=== PATIENT | female | born 1990 | race Caucasian/White ===

== ENCOUNTER → 2019-05-22 08:39 | Outpatient (CLI) | payer OTHER, SELFPAY ==
--- NOTE | ~2019-05-22 | MR_ITS ---
EXAMINATION: MR thoracic spine wo con EXAM DATE: 05/22/2019 09:47 INDICATION: Mid to low back pain. Bilateral leg pain, left side worse. TECHNIQUE: Multi-sequential, multiplanar MR images of the thoracic spine were obtained without contra st. Sagittal T1, T2, T2 fat saturation, axial T2 weighted images reviewed. There is no prior study for comparison. FINDINGS: The spinal cord signal intensity and intrinsic morphology is normal. There is a small right central disc protrusion at T6-7, slightly indenting the spinal cord without signal change. The thora cic central canal and neural foramen are patent. There is mild thoracic disc disease and facet arthro estela. Paraspinal soft tissue is unremarkable. There are no suspicious marrow signal abnormalities. IMPRESSION: Mild thoracic spondylosis. Reviewed, dictated and finalized at location B. IMPRESSION: Mild thoracic spondylosis.
--- NOTE | ~2019-05-22 | MR_ITS ---
EXAMINATION: MR lumbar spine wo con EXAM DATE: 05/22/2019 09:48 INDICATION: Low back pain, bilateral leg pain left side worse. TECHNIQUE: Multi-sequential, multiplanar MR images of the lumbar spine were obtained without contrast . Sagittal T1, T2, T2 fat saturation images. Axial T2 weighted images. There is no prior study for comparison. FINDINGS: The vertebral bodies are aligned in the AP dimension. There is mild lower thoracic disc dis ease, minimal diffuse lumbar disc disease. Vertebral body heights are maintained. There are no suspic ious marrow signal abnormalities. The conus medullaris terminates at the L1 level and has normal sign al intensity and morphology. Paraspinal soft tissue is unremarkable. Level by level evaluation: T12-L1: Disc does not extend beyond the endplate margin. Facet arthropathy: None. Neural foraminal stenosis: No stenosis. Central canal stenosis: No stenosis. L1-L2: Disc does not extend beyond the endplate margin. Facet arthropathy: Minimal. Neural foraminal stenosis: No stenosis. Central canal stenosis: No stenosis. L2-L3: Disc does not extend beyond the endplate margin. Facet arthropathy: Minimal. Neural foraminal stenosis: No stenosis. Central canal stenosis: No stenosis. L3-L4: Disc does not extend beyond the endplate margin. Facet arthropathy: Minimal. Neural foraminal stenosis: No stenosis. Central canal stenosis: No stenosis. L4-L5: There is a minimal diffuse disc bulge. Facet arthropathy: Mild. Neural foraminal stenosis: No stenosis. Central canal stenosis: No stenosis. L5-S1: There is a mild diffuse disc bulge. Facet arthropathy: Mild. Neural foraminal stenosis: No stenosis. Central canal stenosis: No stenosis. IMPRESSION: 1. Mild lumbar spondylosis. Reviewed, dictated and finalized at location B. IMPRESSION: 1. Mild lumbar spondylosis.
== END ==
PROVIDERS: PCP Family Medicine; Visit Provider Family Medicine
DX: M54.5 Low back pain (principal); M54.6 Pain in thoracic spine; R01.1 Cardiac murmur, unspecified; M47.816 Spondylosis without myelopathy or radiculopathy, lumbar region; M47.814 Spondylosis without myelopathy or radiculopathy, thoracic region
CPT/HCPCS: 72146; 72148

== ENCOUNTER → 2020-05-01 07:09 | Outpatient (CLI) | payer OTHER, SELFPAY ==
[2020-05-01 16:22] LABS: SARS-CoV-2 RNA PCR Negative
== END ==
PROVIDERS: PCP Nurse Practitioner Family; Visit Provider Nurse Practitioner Family
DX: Z20.822 Contact with and (suspected) exposure to COVID-19 (principal)
CPT/HCPCS: C9803; U0003; U0005

== ENCOUNTER 2023-08-24 15:21 | Emergency (ER) | payer OTHER, SELFPAY ==
--- NOTE | 2023-08-24 15:44 | ED.URI ---
HPI - URI/Sore Throat General Chief Complaint: Upper Respiratory Infection Stated Complaint: sorethroat,congestion History of Present Illness HPI Narrative: 33 y/o female presented for c/o sinus pressure, bilateral ear pressure, slight sore throat, chills. Onset yesterday. Took Dayquil, Nyquil, Sudafed. Denies cough, sob, wheezing, n/v/d/f. Related Data Home Medications Medication Instructions Recorded Confirmed levonorgestrel 21 mcg/24 hr (up to See Rx Instructions .Route .COMPLEX 08/24/23 08/24/23 8 years) 52 mg intrauterine device (Mirena) Allergies Allergy/AdvReac Type Severity Reaction Status Date / Time No Known Allergies Allergy Mild Verified 08/24/23 15:26 Review of Systems Review of Systems: CONSTITUTIONAL: Denies body aches, fever or sweats. EYES: Denies visual changes, redness, or discharge. ENT: Denies rhinorrhea, reports congestion, otalgia, sore throat CARDIOVASCULAR: Denies chest pain, palpitations, or edema. RESPIRATORY: Denies dyspnea. GASTROINTESTINAL: Denies abdominal pain, nausea, vomiting, or diarrhea. SKIN: Denies rash, itching, or wounds. MUSCULOSKELETAL: Denies back pain, joint pain, or myalgia. Exam Narrative: GENERAL: well-appearing, no acute distress. EYES: conjunctivae clear ENT: Mucous membranes moist. TMs pearly singleton with normal light reflex bilaterally; no tragal tenderness. Oropharynx mildly erythematous without lesions. Tonsils not enlarged and without exudate. No drooling, no hoarseness, no trismus, uvula midline. No tripod positioning, hot potato voice, or soft palate swelling. NECK: Supple. No lymphadenopathy CHEST: Clear to auscultation, breath sounds equal. HEART: Regular rate and rhythm. SKIN: Warm, dry, no rash. NEURO: Alert and oriented x3. Course Course Emergency Course: Patient is aware of diagnosis, understands and agrees to treatment plan. Anticipatory guidance given. Patient agrees to follow-up as directed and is aware of reasons to seek care at the emergency department. Portions of this record may have been created with voice recognition software Level of Care: Express Care Visit Vital Signs Vital signs: Vital Signs Temperature 98.5 F 08/24/23 15:45 Pulse Rate 82 08/24/23 15:45 Respiratory Rate 16 08/24/23 15:45 Blood Pressure 108/70 08/24/23 15:45 Pulse Oximetry 100 08/24/23 15:45 Oxygen Delivery Room Air 08/24/23 15:45 Temperature 98.5 F 08/24/23 15:45 Pulse Rate 82 08/24/23 15:45 Respiratory Rate 16 08/24/23 15:45 Blood Pressure 108/70 08/24/23 15:45 Pulse Oximetry 100 08/24/23 15:45 Oxygen Delivery Room Air 08/24/23 15:45 MDM - URI/Sore Throat MDM Narrative Medical decision making narrative: negative flu, covid, strep result reviewed with pt. Advise supportive treatments. Patient is appropriate for outpatient treatment and follow-up. Differential Diagnosis Differential diagnosis: Likely upper respiratory infection, viral infection and pharyngitis Discharge Plan Discharge Clinical Impression: Upper respiratory infection Patient Disposition: Home, Self-Care Condition: Stable Instructions: Antibiotic Form, Upper Respiratory Infection (ED) Additional Instructions: Your rapid covid test was negative today. It may be too early to detect the virus, therefore we recommend retesting at home in 1-2 days Continue to follow general precautions: frequent handwashing, wear a mask, isolate/social distance, and avoid crowds if you have a fever. You must be fever free for 24 hours without the use of fever reducing medication (Tylenol/ibuprofen) before returning to work/school/crowds. Rapid strep swab was negative today You will be notified in a few days if the culture comes back positive for strep, and appropriate antibiotics will be called in at that time. if symptoms are due to a viral illness, it is not treated with antibiotics. Viral symptoms can be present for up t
[2023-08-24 15:45] VITALS: BP 108/70; PULSE 82; RESP 16; TEMP 36.9; O2SAT 100
[2023-08-24 15:51] LABS: EDSTREPNEGPOS1 Presumptive Negative
[2023-08-24 16:01] LABS: EDINFLUASCREEN Negative; EDINFLUBSCREEN Negative
== END 2023-08-24 16:02 | disposition home or self-care (01) ==
PROVIDERS: Emergency Provider Nurse Practitioner Family
DX: J06.9 Acute upper respiratory infection, unspecified (principal); Z20.822 Contact with and (suspected) exposure to COVID-19
CPT/HCPCS: 87081; 87426; 87804; 87880; 99213; G0463

== ENCOUNTER 2024-11-09 22:41 | Emergency (ER) | payer OTHER, SELFPAY ==
[2024-11-09] VITALS (7 sets, daily range): BP systolic 112–131; BP diastolic 67–72; PULSE 95–102; RESP 9–20; TEMP 37; O2SAT 91–100
--- NOTE | ~2024-11-09 | XR_ITS ---
Examination: XR chest 2V Clinical History: chest pain Comparison: None Technique: PA and Lateral Findings: Cardiomediastinal silhouette normal size and configuration. Lungs clear. No acute bony abnormality. IMPRESSION: 1. No acute cardiopulmonary findings. Reviewed, dictated and finalized at location R.
--- NOTE | 2024-11-09 22:46 | ECG_ITS ---
Test Date: 2024-11-09 22:48:52 Measurements Intervals [place] Rate: 97 P: 113 UT: 131 QRS: 88 QRSD: 88 T: 57 QT: 314 QTc: 400 Interpretive Statements SINUS RHYTHM BASELINE ARTIFACT- I, II, III, AVR, AVL NORMAL ECG No previous ECG available for comparison Electronically Signed On 11-10-2024 06:17:37 CDT by Heath Carlos D.O.
[2024-11-09] MEDS: ASPIRIN 81 MG CHEWABLE TABLET 324 MG PO (23:02)
--- NOTE | 2024-11-09 23:03 | ED.CHESTPAIN ---
HPI - Chest Pain General Chief Complaint: Chest Pain Stated Complaint: chest pain Time Seen by Provider: 11/09/24 22:47 History of Present Illness HPI narrative: Patient is a 34-year-old female who presents to the ER with complaints of chest pain that started around 9:30 p.m. this evening. She reports she started experiencing aches around 8:00 p.m. so she laid in bed but her symptoms worsened. Patient reports she started experiencing chest pain radiates from the bottom of her left rib up to her shoulder, accompanied with shortness of breath. She reports she has an IUD. Patient denies any cough or congestion, recent fevers, or abdominal pain. She denies any medical history relevant to this ER visit. Related Data Home Medications ?Medication ?Instructions ?Recorded ?Confirmed ?Last Taken ?Type levonorgestrel (Mirena) See Rx Instructions .Route .COMPLEX 08/24/23 09/14/24 Unknown History naproxen sodium 220 mg capsule 220 mg PO BID PRN 08/08/24 09/14/24 Unknown History (Aleve) Allergies Allergy/AdvReac Type Severity Reaction Status Date / Time No Known Allergies Allergy Mild Verified 11/09/24 22:55 Review of Systems Review of Systems: All systems reviewed & are unremarkable except as noted in HPI and below PMFSH Past Medical History Medical History Heart murmur Allergies Surgical History Surgical History Presence of Mirena IUD 2015/2016. done at [facility] Family History Family History Grandparent Heart disease mat grandfather Social History Social History Smoking status: Never smoker Alcohol intake: current Alcohol use details: 2-3 beers a night Substance use: never Do You Feel Safe in your Home?: Yes Lack of Transportation: No Lack of Food: Never True Current Housing: I Have Housing Concerned About Future Housing: No Difficulty Paying Gas/Electric Bills: No Difficulty Paying for Meds: No Currently Unemployed: No Education: Bachelor's Degree Difficulty w/ Childcare or Family Care: No Living arrangements: with family Occupation/Education: occupation 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 HEAD: Normocephalic, atraumatic. NECK: Supple. No adenopathy, no masses. RESPIRATORY: Airway patent, respirations mildly labored. Clear to auscultation bilaterally, no rales, rhonchi, wheezing. CARDIOVASCULAR: Tachycardia without murmurs, rubs, or gallops. Peripheral pulses 2+ and equal bilaterally. ABDOMINAL: Soft, nontender, nondistended, no hepatosplenomegaly. Normoactive BS. MUSCULOSKELETAL: Moves all extremities. Strength/ROM intact without gross deformities. SKIN: Warm, dry, normal color. No rashes. NEURO: A&O X3. Speech clear. Cranial nerves II-XII intact. No ataxic movements. PSYCHIATRIC: Anxious Course Vital Signs Vital signs: Vital Signs Temperature 37.0 C 11/09/24 22:46 Pulse Rate 100 11/09/24 22:46 Respiratory Rate 20 11/09/24 22:46 Blood Pressure 131/72 11/09/24 22:46 Pulse Oximetry 100 11/09/24 22:46 Oxygen Delivery Room Air 11/09/24 22:46 Temperature 37.0 C 11/09/24 22:54 Pulse Rate 93 11/10/24 00:45 Respiratory Rate 18 11/10/24 00:45 Blood Pressure 111/63 11/10/24 00:18 Pulse Oximetry 98 11/10/24 00:45 Oxygen Delivery Room Air 11/09/24 22:53 MDM - Chest Pain MDM Narrative Medical decision making narrative: Patient is a 34-year-old female who presents to the ER with complaints of chest pain that started around 9:30 p.m. this evening. She reports she started experiencing aches around 8:00 p.m. so she laid in bed but her symptoms worsened. Patient reports she started experiencing chest pain radiates from the bottom of her left rib up to her shoulder, accompanied with shortness of breath. She reports she has an IUD. Patient denies any cough or congestion, recent fevers, or abdominal pain. She denies any medical history relevant to this ER visit. Labs Ordered: CBC, CMP, PTT, INR, UA, COVID/flu/RSV, troponin, lipase, D-dimer, TSH Imaging Ordered: Chest x-ray Medications Ordered: Morphine 4 mg IV, Valium 5 mg IV, 1L NS IV bolus Results: Patient's chest x-ray indicates no acute cardiopulmonary abnormalities. Diagnosis: Atypical chest pain Risks: HEART score: low risk HEART Score for Major Cardiac Events from [employer] on 11/10/2024 All calculations should be rechecked by clinician prior to use RESULT SUMMARY: 1 points Low Score (0-3 points) Risk of MACE of 0.9-1.7%. INPUTS: History ?> 1 = Moderately suspicious EKG ?> 0 = Normal Age ?> 0 = <45 Risk factors ?> 0 = No known risk factors Initial troponin ?> 0 = <Normal limit Patient Education/Shared MDM: Pt reports she started spotting yesterday, which is consistent with her hematuria on her urinalysis results. Results of lab work and imaging shared with patient. She endorses improvement of symptoms following Valium medication administration. Patient strongly advised to maintain hydration status upon discharge and follow-up with her PCP as soon as possible. She will be discharged home with a prescription for ibuprofen 800 mg and a muscle relaxant. Strict return precautions provided. Patient verbalized understanding and is in agreement with plan. Vital signs stable at time of discharge. All questions answered. Differential Diagnosis Differential diagnosis: Likely atypical chest pain, st elevation myocardial infarction, costochondritis and chest pain Lab Data Attestation: I reviewed the patient's lab results. 11/09/24 22:58 11/09/24 22:58 Labs: Lab Results 11/09/24 11/09/24 11/10/24 Range/Units 22:58 23:23 00:17 WBC 5.8 (4.5-10.0) K/mm3 RBC 4.22 (4.2-5.4) M/mm3 Hgb 12.7 (12.0-15.0) g/dL Hct 38.3 (37.0-47.0) % MCV 90.8 (80-100) fl MCH 30.1 (26-34) pg MCHC 33.2 (32-36) g/dl RDW 12.4 (11.5-14.5) % Plt Count 195 (150-375) k/mm3 MPV 9.9 (7.4-10.4) fl Immature Gran % (Auto) 0.3 (0-0.5) % Neut % (Auto) 81.9 H (45.5-73.1) % Lymph % (Auto) 16.2 L (18.3-44.2) % Vigo % (Auto) 0.9 L (2.6-8.5) % Eos % (Auto) 0.5 (0-4.4) % Baso % (Auto) 0.2 (0.2-1.2) % Lymph # (Auto) 0.93 (0.9-3.2) K/mm3 Vigo # (Auto) 0.1 (0.1-0.6) K/mm3 Eos # (Auto) 0.0 (0-0.3) K/mm3 Baso # (Auto) 0.0 (0.0-0.1) K/mm3 Abs Immat Gran (auto) 0.02 (0.00-0.031) K/mm3 Absolute Neuts (auto) 4.7 (1.3-6.7) K/mm3 Absolute Nucleated RBC 0.000 (0.0-0.012) K/mm3 Nucleated RBC % 0.0 (0.0-0.2) % PT 13.5 (11.1-14.7) Seconds INR 1.0 APTT 22.7 (22.3-36.8) Seconds D-Dimer < 0.27 (<0.48) ug/mL Sodium 134 L (137-145) mmol/L Potassium 3.6 (3.4-5.0) mmol/L Chloride 103 (98-107) mmol/L Carbon Dioxide 22 (22-30) mmol/L Anion Gap 9 (4-12) mmol/L BUN 23 H (7-17) mg/dL Creatinine 0.91 (0.7-1.0) mg/dL Estim Creat Clear Calc 62 ml/min Estimated GFR > 60 (59 - ) Glucose 103 (65-110) mg/dL Calcium 9.0 (8.4-10.2) mg/dL Total Bilirubin 0.6 (0.2-1.3) mg/dL AST 54 H (14-36) U/L ALT 27 (6-35) U/L Alkaline Phosphatase 98 (38-126) U/L Troponin I < 0.012 (0.000-0.034) ng/mL Total Protein 7.3 (6.3-8.2) g/dL Albumin 4.3 (3.5-5.1) g/dL Lipase 145 (23-300) U/L TSH (Reflex) 2.590 (0.465-4.68) uIU/mL Urine Color Yellow (Yellow) Urine Appearance Clear (Clear) Urine pH 7.0 (5.0-9.0) Ur Specific [place] 1.015 (1.001-1.035) Urine Protein Negative (Negative) mg/dL Urine Glucose (UA) Negative (Negative) mg/dL Urine Ketones 1+ H (Negative) mg/dL Ur Blood (Man) Non-hemolyzed trace H (Negative) Urine Nitrate Negative (Negative) Urine Bilirubin Negative (Negative) Urine Urobilinogen 1.0 (<2.0) mg/dL Leukocyte Esterase Rfl Negative (Negative) ROCKY/UL Urine RBC 6-10 H (0-2) /hpf Urine WBC 0-5 (0-3) /hpf Ur Squamous Epith Cells Few (Few) /hpf Urine Bacteria None seen /hpf Urine Casts 0-2 Influenza A (RT-PCR) Negative (Negative) Influenza B (RT-PCR) Negative (Negative) RSV (RT-PCR) Negative (Negative) SARS-CoV-2 RNA (RT-PCR) Negative (Negative) 11/10/24 Range/Units 01:35 WBC (4.5-10.0) K/mm3 RBC (4.2-5.4) M/mm3 Hgb (12.0-15.0) g/dL Hct (37.0-47.0) % MCV (80-100) fl MCH (26-34) pg MCHC (32-36) g/dl RDW (11.5-14.5) % Plt Count (150-375) k/mm3 MPV (7.4-10.4) fl Immature Gran % (Auto) (0-0.5) % Neut % (Auto) (45.5-73.1) % Lymph % (Auto) (18.3-44.2) % Vigo % (Auto) (2.6-8.5) % Eos % (Auto) (0-4.4) % Baso % (Auto) (0.2-1.2) % Lymph # (Auto) (0.9-3.2) K/mm3 Vigo # (Auto) (0.1-0.6) K/mm3 Eos # (Auto) (0-0.3) K/mm3 Baso # (Auto) (0.0-0.1) K/mm3 Abs Immat Gran (auto) (0.00-0.031) K/mm3 Absolute Neuts (auto) (1.3-6.7) K/mm3 Absolute Nucleated RBC (0.0-0.012) K/mm3 Nucleated RBC % (0.0-0.2) % PT (11.1-14.7) Seconds INR APTT (22.3-36.8) Seconds D-Dimer (<0.48) ug/mL Sodium (137-145) mmol/L Potassium (3.4-5.0) mmol/L Chloride (98-107) mmol/L Carbon Dioxide (22-30) mmol/L Anion Gap (4-12) mmol/L BUN (7-17) mg/dL Creatinine (0.7-1.0) mg/dL Estim Creat Clear Calc ml/min Estimated GFR (59 - ) Glucose (65-110) mg/dL Calcium (8.4-10.2) mg/dL Total Bilirubin (0.2-1.3) mg/dL AST (14-36) U/L ALT (6-35) U/L Alkaline Phosphatase (38-126) U/L Troponin I < 0.012 (0.000-0.034) ng/mL Total Protein (6.3-8.2) g/dL Albumin (3.5-5.1) g/dL Lipase (23-300) U/L TSH (Reflex) (0.465-4.68) uIU/mL Urine Color (Yellow) Urine Appearance (Clear) Urine pH (5.0-9.0) Ur Specific Rode[place] (1.001-1.035) Urine Protein (Negative) mg/dL Urine Glucose (UA) (Negative) mg/dL Urine Ketones (Negative) mg/dL Ur Blood (Man) (Negative) Urine Nitrate (Negative) Urine Bilirubin (Negative) Urine Urobilinogen (<2.0) mg/dL Leukocyte Esterase Rfl (Negative) ROCKY/UL Urine RBC (0-2) /hpf Urine WBC (0-3) /hpf Ur Squamous Epith Cells (Few) /hpf Urine Bacteria /hpf Urine Casts Influenza A (RT-PCR) (Negative) Influenza B (RT-PCR) (Negative) RSV (RT-PCR) (Negative) SARS-CoV-2 RNA (RT-PCR) (Negative) Imaging Data Attestation: I personally reviewed and interpreted this imaging study as follows: Radiologist's impression: Patient's chest x-ray indicates no acute cardiopulmonary abnormalities. Discharge Plan Discharge Clinical Impression: Atypical chest pain Patient Disposition: Home Condition: Stable Instructions: Antibiotic Form, Noncardiac Chest Pain (ED) Additional Instructions: Please return to the ER with any worsening symptoms. Follow-up with primary care provider as soon as possible for further evaluation. You may take Tylenol and ibuprofen together for pain control. Please take muscle relaxants as needed. Remember to drink lots of water. Patient Language: Azeri Prescriptions: New ibuprofen 800 mg tablet 800 mg PO TID PRN (Reason: pain) Qty: 30 0RF cyclobenzaprine 10 mg tablet 10 mg PO TID PRN (Reason: muscle spasm) Qty: 30 0RF No Action Mirena 21 mcg/24 hr (8 yrs) 52 mg Intrauterine Device See Rx Instructions .ROUTE .COMPLEX Rx Instructions: 21 mcg intrauterinely naproxen sodium [Aleve] 220 mg capsule 220 mg PO BID PRN Follow-up/Referrals: [place],SHADY Prieto [Primary Care Provider]
[2024-11-09 23:05] LABS: Hematocrit 38.3 % (37.0-47.0); Hemoglobin 12.7 g/dL (12.0-15.0); Immature Granulocyte Percent A 0.3 % (0-0.5); Lymphocytes Absolute Auto 0.93 K/mm3 (0.9-3.2); Mean Corpuscular HGB Conc 33.2 g/dl (32-36); Mean Corpuscular Hemoglobin 30.1 pg (26-34); Mean Corpuscular Volume 90.8 fl (80-100); Nucleated Red Blood Cells Absolute Auto 0.000 K/mm3 (0.0-0.012); Nucleated Red Blood Cells Perc 0.0 % (0.0-0.2); Platelet Count Result 195 k/mm3 (150-375); Red Blood Count 4.22 M/mm3 (4.2-5.4); White Blood Count 5.8 K/mm3 (4.5-10.0)
[2024-11-09] MEDS: MORPHINE SULFATE (*CRX) 4 MG/ML INJ IV PUSH (23:05)
--- OUTSIDE RECORDS SUMMARY | 2024-11-09 23:15 | XMS_ITS | Clinical Summary ---
Author Organization [place] [id number] [facility] Address [address] [place] [address] Care Team Providers Care Yarn Dyer Name Role Phone Jessie Chowdhury Primary Care Provider Allergies No known active allergies Medications levonorgestreL (Mirena) IUD Mirena 21 mcg/24 hours (8 yrs) 52 mg intrauterine device Take by intrauterine route. 0 Active Active Problems No known active problems Surgical History Surgery Date Site/Laterality Comments FLUORO GUIDED ASPIRATION OR INJECTION LARGE JOINT RIGHT 09/17/2022 Right Medical History Medical History Date Comments Arthritis 2016? Family History Medical History Relation Name Comments Heart disease Maternal Grandfather Raúl Carrasco Cancer Paternal Grandfather Ronn Ovalle Arthritis Paternal Grandmother Olgalyndsey Mckeonmann Cancer Paternal Grandmother Olga Lnidamann Relation Name Status Comments Maternal Grandfather Raúl Carracso Paternal Grandfather Ronn Lindamann Paternal Grandmother Olgalyndsey Mckeonmann Social History Tobacco Use Types Packs/Day Years Used Date Smoking Tobacco: Never Smokeless Tobacco: Never Tobacco Cessation:Counseling Given: Not Answered Comments Unknown Sex and Gender Information Value Date Recorded Sex Assigned at Not on file Legal Sex Female 11:38 AM REED OR WIND INSTRUMENT REPAIRER Gender Identity Female 03/23/2022 9:44 AM REED OR WIND INSTRUMENT REPAIRER Sexual Orientation Straight 03/23/2022 9: 44 AM REED OR WIND INSTRUMENT REPAIRER Obstetrics History Last Filed Vital Signs Vital Sign Reading Time Taken Comments Blood Pressure 124/72 09/17/2022 11:12 AM CDT Pulse 74 09/17/2022 11:12 AM CDT Temperature 36.7 C (98.1 F) 09/17/2022 9:30 AM CDT Respiratory Rate 16 09/17/2022 11:12 AM CDT Oxygen Saturation 100% 09/17/2022 11:12 AM CDT Inhaled Oxygen Concentration - - Weight 57.4 kg (126 lb 9.6 oz) 03/02/2023 9:41 A M REED OR WIND INSTRUMENT REPAIRER Height 160 cm (5' 3) 03/02/2023 9:41 AM REED OR WIND INSTRUMENT REPAIRER Body Mass Index 22.43 03/02/2023 9:41 AM REED OR WIND INSTRUMENT REPAIRER Plan of Treatment Health Maintenance Due Date Last Done Comments Cervical Cancer Screening 1988 Depression Screening 1988 Hepatitis C Screening 1988 DTaP/Tdap/Td Vaccine (1 - Tdap) 1999 Varicella Vaccines (1 of 2 - 13+ 2-dose series) 2001 Hepatitis B Screening 2006 Regular Well Visit/Exam 18-64 2006 HPV Vaccines (1 - 3-dose SCD M series) 2015 Covid-19 Vaccine (3 - 2024-2 6 season) 2024 04/09/2020, 03/12/2020 Influenza Vaccine (#1) 2024 Pneumococcal vaccine <65 Aged Out No longer eligible based on patient's age to complete this topic Insurance [facility] H[facility]/PPO Address: [facility] [address] [place] [address] [facility]/PPO Address: [facility] [address] [place] [address] Care Teams Yarn Dyer Relationship Specialty Start Date End Date Jessie Chowdhury PA PCP - General Physician Compressor Operator Adjuster 01/23/22
--- OUTSIDE RECORDS SUMMARY | 2024-11-09 23:15 | XMS_ITS | Encounter Summary ---
Author Organization [facility] Address [address] [place] [address] Care Team Providers Care Computer Lab Para Professional Name Role Phone Jessie Chowdhury Primary Care Provider Encounter Details Date Type Department Care Team (Late st Contact Info) Description 01/22/2022 [employer] Message Enc [facility] [id number] [place] [phone] Jessie Chowdhury [place] [id number] [place] [address] [phone] Sent referral Social History Tobacco Use Types Packs/Day Years Used Date Smoking Tobacco: Never Smokeless Tobacco: Never Comments:Never smoked Alcohol Use Standard Drinks/Week Comments Yes 13.3 (1 standard drink = 0.6 oz pure alcohol) Beer or 2 a night PHQ-2 Answer Date Recorded PHQ-2 Score - If the patient scores above 3, please move on to questions 3-9 0 09/17/2021 Comments No Sex and Gender Information Value Date Recorded Sex Assigned at Female 04/04/2024 8:10 AM AMMONIA OPERATOR Legal Sex Female 2:53 PM CDT Gender Identity Female 09/17/2021 5:57 AM CDT Sexual Orientation Straight 09/17/2021 5: 57 AM CDT COVID-19 Exposure Response Date Recorded In the last 10 days, have yo u been in contact with someone who was confirmed or suspected to have Coronavirus/COVID-19? No / Unsure 01/14/2022 7:32 AM AMMONIA OPERATOR documented as of this encounter Plan of Treatment Not on file documented as of this encounter Visit Diagnoses Not on filedocumented in this encounter Additional Health Concerns Infection Onset Date Last Indicated Resolved Time Respiratory Rule Out 04/04/2024 04/04/2024 025 8:34 AM AMMONIA OPERATOR Influenza - Seasonal 04/04/2024 04/04/2024 025 12:32 AM AMMONIA OPERATOR documented as of this encounter Care Teams Computer Lab Para Professional Relationship Specialty Start [place] [address] [place] [address] PCP - General PHYSICIAN HOME DESIGNER 09/17/21 documented as of this encounter
--- OUTSIDE RECORDS SUMMARY | 2024-11-09 23:15 | XMS_ITS | Clinical Summary ---
Author Organization [facility] Address [facility] [place] [address] Care Team Providers Care Credit Verifier Name Role Phone Jessie Chowdhury Primary Care Provider Allergies No known active allergies Medications No known medications Active Problems Problem Noted Date Diagnosed Date Back pain 09/17/2015 Overview (04/04/2024): Regular chiropractor visits maintains the pain. Hip pain 01/12/2000 Overview (04/04/2024): Pain in hip joint during specific movements such as pivoting. Have felt it for as long as I can remember, has been increasing in pain and frequency. Heart murmur 1988 Overview (04/04/2024): Balloon at 6 months old. No issues since Immunizations Immunization Administration Dates Next Due Influenza Adult (Generic) 04/11/2019 MODERNA COVID-19 (12+) MRNA, LNP-S, PF, 100 MCG/ 0.5 ML DOSE 04/09/2020,03/12/2020 Family History Medical History Relation Comments Heart Disease Maternal Grandfather Diabetes Mother Cancer Paternal Grandfather Liver and l leanne Cancer Paternal Grandmother Bone/spine cancer Relation Status Comments Maternal Grandfather Mother Paternal Grandfather Paternal Grandmother Social History Tobacco Use Types Packs/Day Years Used Date Smoking Tobacco: Never Passive Smoke Exposure: Never Smokeless Tobacco: Never Tobacco Cessation:Counseling Given: No Comments:Never smoked Alcohol Use Standard Drinks/Week Comments Yes 13.3 (1 standard drink = 0.6 oz pure alcohol) Beer or 2 a night PHQ-2 Answer Date Recorded Patient Health Questionnaire-2 Score 0 05/12/2024 Comments No Sex and Gender Information Value Date Recorded Sex Assigned at Female 04/04/2024 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 Legal Sex Female 2:53 PM CDT Gender Identity Female 09/17/2021 5:57 AM CDT Sexual Orientation Straight 09/17/2021 5: 57 AM CDT Last Filed Vital Signs Vital Sign Reading Time Taken Comments Blood Pressure 106/65 05/12/2024 9:02 AM CDT Pulse 72 05/12/2024 9:02 AM CDT Temperature 36.8 C (98.2 F) 05/12/2024 9:02 AM CDT Respiratory Rate 16 05/12/2024 9:02 AM CDT Oxygen Saturation 99% 05/12/2024 9:02 AM CDT Inhaled Oxygen Concentration - - Weight 58.5 kg (129 lb) 05/12/2024 9:02 AM CDT Height 160 cm (5' 3) 05/12/2024 9:02 AM CDT Body Mass Index 22.85 05/12/2024 9:02 AM CDT Plan of Treatment Health Maintenance Due Date Last Done Comments Hepatitis C 2006 DTaP, Tdap and Td Vaccines ( 1 - Tdap) 2007 Hepatitis B Vaccines (1 of 3 - 19+ 3-dose series) 2007 HPV Vaccines (1 - 3-dose SCD M series) 2015 Cervical Cancer Screening Pa p with HPV Testing (Age 30 to 64) Every 5 Years 2018 Annual Physical 09/17/2022 09/17/2021 Cervical Cancer Screening Pa p Smear (Age 30 to 64) Every 3 Years 06/13/2023 06/12/2020 Cervical Cancer Screening wi th HPV 06/13/2023 COVID-19 Vaccine ( - 2024-2 6 season) 2024 04/09/2020, 03/12/2020 Influenza Adult (#1) 2024 04/11/2019 PHQ-2 (Physician [place]) Completed 05/12/2024 Meningococcal B Vaccine Aged Out No l onger eligible based on patient's age to complete this topic Meningococcal Vaccine Aged Out No alma kellee eligible based on patient's age to complete this topic Pneumococcal Vaccine: Pediatrics (0 to 5 Years) and At-Risk Patients (6 to 49 Years) Aged Out No longer eligible b ased on patient's age to complete this topic RSV Immunizations Under 20 Months Aged Out No longer eligible b ased on patient's age to complete this topic Insurance [facility] Care Teams Credit Verifier Relationship Specialty [place] [address] [place] [address] PCP - General PHYSICIAN RESEARCH LAB ASSISTANT 09/17/21
[2024-11-09 23:16] LABS: INR 1.0; Prothrombin Time 13.5 Seconds (11.1-14.7)
[2024-11-09 23:17] LABS: Partial Thromboplastin Time 22.7 Seconds (22.3-36.8)
[2024-11-09 23:21] LABS: Alanine Aminotransferase 27 U/L (6-35); Albumin Level 4.3 g/dL (3.5-5.1); Alkaline Phosphatase 98 U/L (38-126); Anion Gap 9 mmol/L (4-12); Aspartate Amino Transferase 54 U/L (14-36); Bilirubin,Total 0.6 mg/dL (0.2-1.3); Blood Urea Nitrogen 23 mg/dL (7-17); Calcium 9.0 mg/dL (8.4-10.2); Carbon Dioxide 22 mmol/L (22-30); Chloride 103 mmol/L (98-107); Estimated CRCL calculation 62 ml/min; Estimated Glomerular Filt Rate > 60; Glucose 103 mg/dL (65-110); Lipase 145 U/L (23-300); Potassium 3.6 mmol/L (3.4-5.0); Sodium 134 mmol/L (137-145); Total Protein 7.3 g/dL (6.3-8.2)
[2024-11-09 23:28] LABS: Troponin I < 0.012 ng/mL (0.000-0.034)
[2024-11-09] MEDS: diazePAM INJ (*CRX) 10 MG/2 ML SYRINGE 5 MG IV PUSH (23:44)
[2024-11-09 23:56] LABS: Thyroid Stimulating Hormone Reflex 2.590 uIU/mL (0.465-4.68)
[2024-11-09] MEDS: SODIUM CHLORIDE 0.9% IV 1,000 ML 999 ML IV CONT (23:57)
[2024-11-10] VITALS (8 sets, daily range): BP systolic 104–111; BP diastolic 63–71; PULSE 88–98; RESP 12–23; O2SAT 95–100
[2024-11-10 00:04] LABS: Influenza A QL RT-PCR Negative (Negative); Influenza B QL RT-PCR Negative (Negative); RSV RNA, RT-PCR Negative (Negative); SARS-CoV-2 RNA PCR Negative (Negative)
[2024-11-10 00:29] LABS: Add Urine Microscopic? NO; Appearance Urine Clear (Clear); Glucose Urine UA Negative (Negative); Leukocyte Esterase Ur Negative LEU/UL (Negative); Nitrate Urine Negative (Negative); Non Pathogenic Casts 0-2; Specific Grav Ur 1.015 (1.001-1.035)
--- NOTE | 2024-11-10 01:24 | ECG_ITS ---
Test Date: 2024-11-10 01:28:16 Measurements Intervals Douglas Rate: 89 P: 106 ID: 123 QRS: 88 QRSD: 94 T: 50 QT: 343 QTc: 419 Interpretive Statements SINUS RHYTHM INCOMPLETE RIGHT BUNDLE BRANCH BLOCK BORDERLINE ECG Compared to ECG 11/09/2024 22:48:52 No significant changes Electronically Signed On 11-10-2024 06:13:22 CDT by Heath Carlos D.O.
[2024-11-10 02:03] LABS: Troponin I < 0.012 ng/mL (0.000-0.034)
== END 2024-11-10 02:35 | disposition home or self-care (01) ==
PROVIDERS: Emergency Provider Registered Nurse; PCP Physician Assistant
DX: R07.89 Other chest pain (principal); Z20.822 Contact with and (suspected) exposure to COVID-19; Z97.5 Presence of (intrauterine) contraceptive device; I45.10 Unspecified right bundle-branch block
CPT/HCPCS: 36415; 71046; 80053; 81003; 83690; 84443; 84484; 85025; 85380; 85610; 85730; 87637; 93005; 96361; 96374; 96375; 99284; A9270; J2270; J3360; J7030